=== PATIENT | male | born 1970 | race Caucasian/White ===

== ENCOUNTER 2021-07-02 00:14 | Observation (INO) | payer OTHER ==
[~2021-07-02] VITALS: Ht 170.2 cm; Wt 78.9 kg
[2021-07-02] MEDS ORDERED: ONDA4ODT PO (00:44)
[2021-07-02] MEDS ORDERED: Fluocinonide15 G1 TOP (00:45)
[2021-07-02] MEDS ORDERED: Ativan1 MG PO (00:46)
[2021-07-02] MEDS ORDERED: ALBU2.5V5 INH (00:46)
[2021-07-02] MEDS ORDERED: FENTANYL1 EA10 TOP (00:47)
[2021-07-02 01:26] LABS: BASOPHILS ABSOLUTE AUTO 0.02 K/mm3 (0.00-0.23); BASOPHILS PERCENT AUTO 0 % (0-2); EOSINOPHILS ABSOLUTE AUTO 0.94 K/mm3 (0.00-0.68); EOSINOPHILS PERCENT AUTO 19 % (0-6); Hematocrit 36.8 % (37.0-53.0); Hemoglobin 12.7 g/dL (13.5-17.5); IMMATURE GRAN ABSOLUTE AUTO 0.01 K/mm3 (0.00-0.10); IMMATURE GRAN PERCENT AUTO 0 % (0-1); LYMPHOCYTES ABSOLUTE AUTO 0.77 K/mm3 (0.84-5.20); LYMPHOCYTES PERCENT AUTO 16 % (21-46); MONOCYTES ABSOLUTE AUTO 0.38 K/mm3 (0.16-1.47); MONOCYTES PERCENT AUTO 8 % (4-13); Mean Corpuscular HGB 31.7 pg (26.0-34.0); Mean Corpuscular HGB Conc 34.5 g/dL (31.5-36.5); Mean Corpuscular Volume 92 fL (80-100); Mean Platelet Volume 8.3 fL (9.1-12.4); NEUTROPHILS ABSOLUTE AUTO 2.81 K/mm3 (1.96-9.15); NEUTROPHILS PERCENT AUTO 57 % (41-73); Platelet Count 236 K/mm3 (150-400); RDW Coefficient Variation 12.3 % (11.7-14.2); RDW Standard Deviation 42.1 fL (35.1-46.3); Red Blood Cell Count 4.01 M/mm3 (4.30-5.90); White Blood Cell Count 4.93 K/mm3 (4.00-11.30)
[2021-07-02 01:43] LABS: Alanine Aminotransfer (ALT/SGP 24 U/L (12-78); Albumin, Blood 4.1 g/dL (3.4-5.0); Albumin/Globulin Ratio 1.5 (0.8-1.8); Alk Phos 77 U/L (50-136); Anion Gap 7 mmol/L (6-16); Aspartate Aminotrans (AST/SGOT 24 U/L (12-37); Bilirubin, Total 0.4 mg/dL (0.1-1.0); Blood Urea Nitrogen 16 mg/dL (8-24); Bun/Creatinine Ratio 18.2 (12.0-20.0); CO2, Blood 28 mmol/L (21-32); Calcium, Blood 9.1 mg/dL (8.5-10.1); Chloride, Blood 102 mmol/L (98-108); Creatinine, Blood 0.88 mg/dL (0.60-1.20); Globulin, Blood 2.8 g/dL (2.2-4.0); Glomerular Filtration Rate >60 (60-); Glucose, Blood 102 mg/dL (70-99); Potassium, Blood 3.8 mmol/L (3.5-5.5); Sodium, Blood 137 mmol/L (136-145); Total Protein, Blood 6.9 g/dL (6.4-8.2)
[2021-07-02 03:09] LABS: Influenza A, PCR NEGATIVE (NEGATIVE); Influenza B, PCR NEGATIVE (NEGATIVE); Resp Syncytial Virus, PCR NEGATIVE (NEGATIVE); SARS-Cov-2 (COVID-19) PCR, MMC NEGATIVE (NEGATIVE)
[2021-07-02] MEDS ORDERED: Pentoxifylline400 MG PO (06:26)
[2021-07-02] MEDS ORDERED: LOSA25 PO (06:26)
[2021-07-02] MEDS ORDERED: AMLO10 PO (06:26)
[2021-07-02] MEDS ORDERED: OXYC15ER PO (06:27)
[2021-07-02] MEDS ORDERED: ADVAIR HFA INH (06:29)
[2021-07-02] MEDS ORDERED: Ventolin/Prove6.7 GM INH (06:30)
[2021-07-02] MEDS ORDERED: CARBIDOPA-LEVO1 EA17 PO (06:31)
[2021-07-02] MEDS ORDERED: GABA300 PO (06:32)
[2021-07-02] MEDS ORDERED: PRED20 PO (14:48)
--- NOTE | 2021-07-02 16:08 | NUR ---
PT DISCHARGED FROM THE UNIT. IV REMOVED. DISCHARGE INSTRUCTIONS REVIEWED. MEDICATIONS FAXED. PT LEFT UNIT VIA WHEEL CHAIR.
== END 2021-07-02 16:13 | disposition home or self-care (01) ==
LOC: ER 00:14 → MEDS 00:15 → ENPENDDIS 13:14 → MEDS 16:13
PROVIDERS: Student in an Organized Health Care Education/Training Program; ADMIT Family Medicine
DX: R06.03 Acute respiratory distress (principal); I89.0 Lymphedema, not elsewhere classified; C76.0 Malignant neoplasm of head, face and neck; D63.8 Anemia in other chronic diseases classified elsewhere; I10 Essential (primary) hypertension; G20 Parkinson's disease; Z91.011 Allergy to milk products; Z20.822 Contact with and (suspected) exposure to COVID-19
CPT/HCPCS: 0241U; 36415; 71046; 80053; 83605; 84484; 85025; 90686; 93005; 93010; 94640; 94644; 96365; 96366; 96368; 96372; 96375; 96376; 99285-25; G0008; G0378; J0696; J1650; J1956; J2930; J3475